=== PATIENT | male | born 1990 | race Caucasian/White ===

== ENCOUNTER 2022-10-13 21:35 | Emergency (ER) | payer OTHER ==
[~2022-10-13] VITALS: Ht 175.3 cm; Wt 86.2 kg
[2022-10-13 22:09] VITALS: BP_SYST 135
[2022-10-13] MEDS ORDERED: ACETAMINOPHEN 500 MG TABLET PO ONE (23:15)
[2022-10-13] MEDS ORDERED: cefTRIAXone 250 MG VIAL IM ONE (23:15)
[2022-10-13] MEDS ORDERED: DOXYCYCLINE HYCLATE 100 MG CAPSULE PO ONE (23:15)
[2022-10-13] MEDS ORDERED: RALT400T PO (23:19)
[2022-10-13] MEDS ORDERED: DOXY100C5 PO (23:19)
[2022-10-13] MEDS ORDERED: EMTR1TAB12 PO (23:19)
[2022-10-13] MEDS ORDERED: LIDOCAINE 1%, 20 ML MDV 20 ML ONE (23:24)
[2022-10-14] MEDS ORDERED: PENICILLIN G BENZATHINE 1.2 MMU/2 ML SYR IM ONE (00:30)
[2022-10-14 00:51] VITALS: BP_SYST 124
== END 2022-10-14 00:51 | disposition home or self-care (01) ==
LOC: SED 21:35
DX: J02.9 Acute pharyngitis, unspecified (principal); Z88.6 Allergy status to analgesic agent; Z20.6 Contact with and (suspected) exposure to human immunodeficiency virus [HIV]; Z20.2 Contact with and (suspected) exposure to infections with a predominantly sexual mode of transmission; Z79.899 Other long term (current) drug therapy
CPT/HCPCS: 99284; 86403; 87081; 36415; 96372 ×2; J0696; J2001; J0561